=== PATIENT | male | born 1980 | race Caucasian/White ===

== ENCOUNTER → 2017-11-20 | Outpatient (CLI) | payer OTHER | LOC: LAB 14:26 | PROVIDERS: ATTEND Internal Medicine | DX: R21 Rash and other nonspecific skin eruption (principal) | CPT/HCPCS: 86694; 87491; 87591 ==

== ENCOUNTER → 2017-11-28 | Outpatient (CLI) | payer OTHER | LOC: LAB 15:13 | PROVIDERS: ATTEND Internal Medicine | DX: R21 Rash and other nonspecific skin eruption (principal) | CPT/HCPCS: 36415; 86696 ==

== ENCOUNTER 2018-03-19 10:23 | Emergency (ER) | payer OTHER ==
[2018-03-19] MEDS ORDERED: OMEP-125 PO (10:55)
--- NOTE | 2018-03-19 11:12 | ER Report ---
History and Physical Time Seen By MD: 11:12 Hx. of Stated Complaint: PATIENT REPORTS PAIN IN HIS LUNGS ON MONDAY NIGHT. PAIN IS WORSE WITH INSPIRATION. HPI/ROS CHIEF COMPLAINT: Right-sided chest pain HISTORY OF PRESENT ILLNESS: 37-year-old male patient presents to emergency room with complaint of right-sided chest pain. Patient states that he has had this pain for the past several days. He states that seems to worse at night. States it he is woken up until the night with pain. States this been difficult for him to go back to sleep. He states that he was visited by his father, who had a "parainfluenza infection". Patient states that he has not had a fever, chills. Patient states that he has a sore throat, however that is normal after his been singing for several days. Patient is concerned that he may have pneumonia, cancer. He states he does smoke occasionally. Patient states his taken some ibuprofen as well as Tylenol for this. He states this been moderately helpful for the pain, however has not made the pain go away. Patient states the pain is worse with a deep inspiration. REVIEW OF SYSTEMS: Respiratory: No cough, no dyspnea. Cardiovascular: As noted above Gastrointestinal: No vomiting, no abdominal pain. Musculoskeletal: No back pain. Allergies: Coded Allergies: Penicillins (Verified Allergy, Intermediate, 07/26/16) Home Meds Active Scripts Diclofenac Sodium (DICLOFENAC SODIUM) 75 Mg Tablet., 75 MG PO BID, #20 TAB Prov:KYUNG MILLER RESOURCES REPRESENTATIVE 03/19/18 Reported Medications Omeprazole (OMEPRAZOLE) 20 Mg Capsule., 1 CAP PO QDAY, CAP 03/19/18 Past Medical/Surgical History Patient has a past medical history of alcohol use. She has surgical history orthopedic surgery, appendectomy. Patient has a family medical history of CAD. Reviewed Nurses Notes: Yes Smoking Status: Current: Some Days Smoker Exposure to Second Hand Smoke?: Yes Hx Substance Use Disorder: No Hx Alcohol Use: Yes Constitutional Vital Sign - Last 24 Hours 03/19/18 03/19/18 03/19/18 03/19/18 10:47 10:48 10:53 11:23 Temp 98.2 Pulse 76 83 64 Resp 20 B/P (MAP) 123/75 (91) 123/75 Pulse Ox 95 95 96 O2 Delivery Room Air 11/19/18 03/19/18 03/19/18 03/19/18 11:29 11:53 12:00 12:05 Pulse 71 67 B/P (MAP) 132/85 (101) 126/89 (101) Pulse Ox 92 93 03/19/18 12:35 B/P (MAP) 129/87 (101) Pulse Ox 93 Physical Exam General Appearance: The patient is alert, has no immediate need for airway pr otection and no current signs of toxicity. Respiratory: Chest is non tender, lungs are clear to auscultation. Cardiac: regular rate and rhythm Gastrointestinal: Abdomen is soft and non tender, no masses, bowel sounds normal. Musculoskeletal: Neck: Neck is supple and non tender. Extremities have full range of motion and are non tender. Skin: No rashes or lesions. DIFFERENTIAL DIAGNOSIS: After history and physical exam differential diagnosis was considered for chest pain including but not limited to myocardial ischemia, pericarditis pulmonary embolus, chest wall pain, pleural inflammation and pulmonary infectious causes. Medical Decision Making Data Points Result Diagram: 03/19/18 1129 03/19/18 1129 Laboratory Hematology Test 03/19/18 11:29 03/19/18 11:39 Red Blood Count 5.26 M/uL (4.00-5.60) Mean Corpuscular Volume 88.7 fL (80.0-96.0) Mean Corpuscular Hemoglobin 29.9 pg (26.0-33.0) Mean Corpuscular Hemoglobin Concent 33.7 g/dL (32.0-36.0) Red Cell Distribution Width 13.1 % (11.5-14.5) Mean Platelet Volume 9.0 fL (7.2-11.1) Neutrophils (%) (Auto) 65.9 % (39.4-72.5) Lymphocytes (%) (Auto) 23.0 % (17.6-49.6) Monocytes (%) (Auto) 8.8 % (4.1-12.4) Eosinophils (%) (Auto) 1.5 % (0.4-6.7) Basophils (%) (Auto) 0.8 % (0.3-1.4) Nucleated RBC Relative Count (auto) 0.0 /100WBC Neutrophils # (Auto) 3.9 K/uL (2.0-7.4) Lymphocytes # (Auto) 1.4 K/uL (1.3-3.6) Monocytes # (Auto) 0.5 K/uL (0.3-1.0) Eosinophils # (Auto) 0.1 K/uL (0.0-0.5) Basophils # (Auto) 0.0 K/uL (0.0-0.1) Nucleated RBC Absolute Count (auto) 0.00 K/uL D-Dimer Quantitative (PE/DVT) 0.29 ug/ml (0-0.50) Sodium Level 138 mmol/L (137-145) Potassium Level 4.5 mmol/L (3.5-5.0) Chloride Level 102 mmol/L (98-107) Carbon Dioxide Level 30 mmol/L (22-30) Blood Urea Nitrogen 12 mg/dl (9-21) Creatinine 0.90 mg/dl (0.66-1.25) Glomerular Filtration Rate Calc > 60.0 Random Glucose 74 mg/dl (75-110) Calcium Level 9.5 mg/dl (8.4-10.2) Total Bilirubin 0.6 mg/dl (0.2-1.3) Aspartate Amino Transf (AST/SGOT) 32 U/L (0-35) Alanine Aminotransferase (ALT/SGPT) 44 U/L (0-56) Alkaline Phosphatase 50 U/L (0-126) Troponin I < 0.012 ng/ml Total Protein 7.5 g/dl (6.3-8.2) Albumin 4.1 g/dl (3.5-5.0) Influenza Virus Type A (PCR) Negative (NEGATIVE) Influenza Virus Type B (PCR) Negative (NEGATIVE) Chemistry Test 03/19/18 11:29 03/19/18 11:39 White Blood Count 5.9 k/uL (4.5-11.0) Red Blood Count 5.26 M/uL (4.00-5.60) Hemoglobin 15.7 g/dL (14.0-18.0) Hematocrit 46.6 % (42.0-52.0) Mean Corpuscular Volume 88.7 fL (80.0-96.0) Mean Corpuscular Hemoglobin 29.9 pg (26.0-33.0) Mean Corpuscular Hemoglobin Concent 33.7 g/dL (32.0-36.0) Red Cell Distribution Width 13.1 % (11.5-14.5) Platelet Count 223 K/uL (150-450) Mean Platelet Volume 9.0 fL (7.2-11.1) Neutrophils (%) (Auto) 65.9 % (39.4-72.5) Lymphocytes (%) (Auto) 23.0 % (17.6-49.6) Monocytes (%) (Auto) 8.8 % (4.1-12.4) Eosinophils (%) (Auto) 1.5 % (0.4-6.7) Basophils (%) (Auto) 0.8 % (0.3-1.4) Nucleated RBC Relative Count (auto) 0.0 /100WBC Neutrophils # (Auto) 3.9 K/uL (2.0-7.4) Lymphocytes # (Auto) 1.4 K/uL (1.3-3.6) Monocytes # (Auto) 0.5 K/uL (0.3-1.0) Eosinophils # (Auto) 0.1 K/uL (0.0-0.5) Basophils # (Auto) 0.0 K/uL (0.0-0.1) Nucleated RBC Absolute Count (auto) 0.00 K/uL D-Dimer Quantitative (PE/DVT) 0.29 ug/ml (0-0.50) Glomerular Filtration Rate Calc > 60.0 Calcium Level 9.5 mg/dl (8.4-10.2) Total Bilirubin 0.6 mg/dl (0.2-1.3) Aspartate Amino Transf (AST/SGOT) 32 U/L (0-35) Alanine Aminotransferase (ALT/SGPT) 44 U/L (0-56) Alkaline Phosphatase 50 U/L (0-126) Troponin I < 0.012 ng/ml Total Protein 7.5 g/dl (6.3-8.2) Albumin 4.1 g/dl (3.5-5.0) Influenza Virus Type A (PCR) Negative (NEGATIVE) Influenza Virus Type B (PCR) Negative (NEGATIVE) Coagulation Test 03/19/18 11:29 D-Dimer Quantitative (PE/DVT) 0.29 ug/ml EKG/Imaging EKG Interpretation 12 lead EKG: Rhythm: normal sinus rhythm with a ventricular rate of 62 bpm [place]: normal QRS: normal ST segments: normal Imaging CHEST PA AND LAT Indication: shortness of breath Comparison: Chest x-ray 07/18/2016 Findings: Lungs: Clear. Mediastinum/pulmonary vasculature: Heart size and pulmonary vasculature are normal. Bones/soft tissues: Normal. IMPRESSION: Clear lungs. Report Dictated By: Romario Abebe at 03/19/2018 11:44 AM Report E-Signed By: Romario Mis at 03/19/2018 11:44 AM ED Course/Re-evaluation ED Course Patient was admitted to exam room, history and physical were obtained. Differen tial diagnoses were considered. On examination lungs are clear, heart is regular, abdomen is soft nontender. Patient does have some tenderness between ribs 8 and 9 on the right side. A CBC, CMP, chest x-ray, d-dimer, troponin, EKG were done. Lab results were unremarkable chest x-ray showed no acute cardiopulmonary processes, EKG showed a normal sinus rhythm. I discussed the findings with the patient. I believe that with his pain is having between the ribs he has a costochondritis. Social the labs being negative there is no signs of LA or signs of PE or tumor. Patient will be discharged home. We will start him on an anti-inflammatory, diclofenac, twice a day and have him follow-up with his primary care provider in next week. Patient verbalized understanding and agreement with plan. Decision to Disposition Date: Mar 19, 2018 Decision to Disposition Time: 12:32 Depart Departure Latest Vital Signs Vital Signs Date Time Temp Pulse Resp B/P (MAP) Pulse Ox O2 Delivery O2 Flow Rate FiO2 03/19/18 12:35 129/87 (101) 93 03/19/18 12:05 67 03/19/18 10:48 98.2 20 Room Air Impression: Primary Impression: Costochondritis, acute Condition: Improved Disposition: HOME OR SELF-CARE Referrals: LANETTE OLGUIN MD (PCP) New Scripts Diclofenac Sodium (DICLOFENAC SODIUM) 75 Mg Tablet. 75 MG PO BID, #20 TAB Prov: KYUNG MILLER 03/19/18 Patient Instructions: Costochondritis (ED) Additional Instructions: Ice the ribs 2-3 times a day for 20-25 minutes. Use a towel to protect the skin from frostbite. Limit activity by pain. Don't take any Aleve, Naproxen, Ibuprofen or Advil while taking this medication. Follow up with your primary care provider in the next week. Return to the ER if condition worsens. KYUNG MILLER Mar 19, 2018 11:12
--- NOTE | 2018-03-19 11:27 | EKG ---
FACILITY: [facility] PATIENT NAME: EUFEMIA QUIROS : [id number] MR: [id number] V: [id number] EXAM DATE: ORDERING PHYSICIAN: KYUNG MILLER TECHNOLOGIST: Test Reason : keon Blood Pressure : / mmHG Vent. Rate : 062 BPM Atrial Rate : 062 BPM P-R Int : 122 ms QRS Dur : 092 ms QT Int : 384 ms P-R-T Axes : 053 061 057 degrees QTc Int : 389 ms Normal sinus rhythm Normal ECG When compared with ECG of 26-JUL-2016 05:34, No significant change was found Confirmed by Karl Silva ([id number]) on 03/19/2018 8:14:16 PM Referred By: KEON MILLER Confirmed By:Karl Means
[2018-03-19 11:45] LABS: PLATELET COUNT, AUTOMATED 223 K/uL (150-450)
--- NOTE | 2018-03-19 11:49 | RADIOLOGY IMAGING REPORT ---
FACILITY: [facility] [place] PATIENT NAME: Nikolas Cherry : 1980 MR: [id number] V: [id number] EXAM DATE: ORDERING PHYSICIAN: MIGEL HIGH TECHNOLOGIST: Location: [facility] Patient: Nikolas Cherry : 1980 Visit/Account:[id number] Date of Sevice: 03/19/2018 CHEST PA AND LAT Indication: shortness of breath Comparison: Chest x-ray 07/18/2016 Findings: Lungs: Clear. Mediastinum/pulmonary vasculature: Heart size and pulmonary vasculature are normal. Bones/soft tissues: Normal. IMPRESSION: Clear lungs. Report Dictated By: Romario Abebe at 03/19/2018 11:44 AM Report E-Signed By: Romario Abebe at 03/19/2018 11:44 AM WSN:[email or web address]
[2018-03-19] MEDS ORDERED: DICL-195 PO (12:29)
[2018-03-19 12:35] VITALS: BP 129/87
== END 2018-03-19 12:39 | disposition home or self-care (01) ==
LOC: ER 11:19
DX: M94.0 Chondrocostal junction syndrome [Tietze] (principal)
CPT/HCPCS: 71046; 82040; 82247; 82310; 82374; 82435; 82565; 82947; 84075; 84132; 84155; 84295; 84450; 84460; 84484; 84520; 85025; 85379; 87502; 93005; 99284